=== PATIENT | male | born 1955 | race Caucasian/White ===

== ENCOUNTER 2017-10-24 06:37 | Day surgery (SDC) | payer OTHER ==
[~2017-10-24] VITALS: Ht 165.1 cm; Wt 75.9 kg
[~2017-10-24 06:37] MED LIST: ALBU8HFA IH; BUPR150T3 PO; DICL-290 PO; ESCI10TA PO; FAMO20 PO; MONT10TA21 PO; OMEP20 PO; PRED10 PO; SODIUM CHLORIDE 0.9% 1,000 ML IV ONE; ZOLP10TA7 PO
[2017-10-24] MEDS ORDERED: ALBUTEROL SULFATE 2.5 MG/0.5 ML NEB SOLUTION NEB ONE (06:38)
[2017-10-24] MEDS ORDERED: LIDOCAINE HCL 4% 50 ML SOLUTION TP ONE (06:38)
[2017-10-24] MEDS ORDERED: BENZOCAINE 20% 50 MCG/SPRAY 57 GM TP ONE (06:38)
[2017-10-24] MEDS ORDERED: LIDOCAINE HCL 2% 30 ML JELLY TP ONE (06:38)
[2017-10-24] MEDS ORDERED: METF500T6 PO (06:57)
[2017-10-24] MEDS ORDERED: OXYC-522 PO (06:57)
[2017-10-24] MEDS ORDERED: MIDAZOLAM HCL 2 MG/2 ML VIAL ONE ×2 (08:05)
[2017-10-24] MEDS ORDERED: FentaNYL CITRATE-PF 100 MCG/2 ML VIAL ONE (08:06)
[2017-10-24 09:08] LABS: GLUCOMETER DEV NAME(LOC) SDS 5; GLUCOSE,POINT OF CARE 87 MG/DL (70-110)
[2017-10-24] MEDS ORDERED: MethylPREDNISolone SOD SUCC 125 MG/2 ML VIAL IVP ONE (09:15)
[2017-10-24] MEDS ORDERED: MethylPREDNISolone SOD SUCC 125 MG/2 ML VIAL ONE (09:29)
[2017-10-24] MEDS ORDERED: OXYGEN THERAPY IH SCH (20:00)
== END 2017-10-24 10:20 | disposition home or self-care (01) ==
LOC: SURGERY 06:37
PROVIDERS: ATTEND Internal Medicine Critical Care Medicine
DX: J38.4 Edema of larynx (principal); J18.9 Pneumonia, unspecified organism; J44.9 Chronic obstructive pulmonary disease, unspecified; B37.0 Candidal stomatitis; J44.0 Chronic obstructive pulmonary disease with (acute) lower respiratory infection; J45.998 Other asthma; Z85.118 Personal history of other malignant neoplasm of bronchus and lung; Z98.890 Other specified postprocedural states; Z87.442 Personal history of urinary calculi; F32.9 Major depressive disorder, single episode, unspecified; Z85.46 Personal history of malignant neoplasm of prostate
CPT/HCPCS: 31623; 31624; 71045; 82962; 87015; 87070; 87101; 87205; 87206; 87220; 88108; 88312; 94640; J2250; J2930; J3010; J7030

== ENCOUNTER 2018-11-13 06:52 | Day surgery (SDC) | payer OTHER ==
[~2018-11-13] VITALS: Ht 167.6 cm; Wt 69.5 kg
[~2018-11-13 06:52] MED LIST changes: +METF-960 PO; +OXYC-522 PO
[2018-11-13] MEDS ORDERED: MIDAZOLAM HCL 2 MG/2 ML VIAL ONE (07:34)
[2018-11-13] MEDS ORDERED: FentaNYL CITRATE-PF 100 MCG/2 ML VIAL ONE (07:34)
[2018-11-13] MEDS ORDERED: MethylPREDNISolone SOD SUCC 125 MG/2 ML VIAL IVP ONE (09:15)
[2018-11-13] MEDS ORDERED: MethylPREDNISolone SOD SUCC 125 MG/2 ML VIAL ONE (09:16)
[2018-11-13] MEDS ORDERED: LIDOCAINE 2% 30 ML JELLY TP ONE (12:00)
[2018-11-13] MEDS ORDERED: LIDOCAINE 4% 50 ML SOLUTION TP ONE (12:00)
[2018-11-13] MEDS ORDERED: ALBUTEROL SULFATE 2.5 MG/0.5 ML NEB SOLUTION NEB ONE (12:00)
[2018-11-13] MEDS ORDERED: BENZOCAINE 20% 50 MCG/SPRAY 57 GM TP ONE (12:00)
[2018-11-13] MEDS ORDERED: OXYGEN THERAPY IH SCH (20:00)
== END 2018-11-13 11:00 | disposition home or self-care (01) ==
LOC: SURGERY 06:52
PROVIDERS: ATTEND Internal Medicine Critical Care Medicine
DX: J38.4 Edema of larynx (principal); B37.0 Candidal stomatitis; I25.2 Old myocardial infarction; Z87.891 Personal history of nicotine dependence; Z98.890 Other specified postprocedural states; Z87.01 Personal history of pneumonia (recurrent); Z72.89 Other problems related to lifestyle; E11.9 Type 2 diabetes mellitus without complications; Z85.46 Personal history of malignant neoplasm of prostate; Z85.118 Personal history of other malignant neoplasm of bronchus and lung
CPT/HCPCS: 31623; 31624; 71045; 87015; 87070; 87077; 87101; 87186; 87205; 87206; 87220; J2250; J2930; J3010; J7030; 88108; 88312